=== PATIENT | female | born 1930 | race Hispanic/Latino ===

== ENCOUNTER 2018-02-20 12:02 | Observation (INO) | payer OTHER, MEDICARE ==
[2018-02-20] MEDS ORDERED: Lidocaine 2% Inj (20ml) ONE (12:05)
[2018-02-20] MEDS ORDERED: Phenylephrine 10 mg/ml Inj ONE (12:06)
[2018-02-20] MEDS ORDERED: Adenosine 90 mg/30mL IV ONE (12:06)
[2018-02-20] MEDS ORDERED: Midazolam 2 MG/2 ML VIAL ONE ×2 (12:07→12:31)
[2018-02-20] MEDS ORDERED: Iohexol 350mgl/ml 50 ML ONE (12:09)
[2018-02-20] MEDS ORDERED: Iodixanol 320 MG/ML 200 ML BOTTLE IV ONE (12:09)
[2018-02-20] MEDS ORDERED: Iodixanol 320 MG/ML 100 ML BOTTLE IV ONE (12:09)
[2018-02-20] MEDS ORDERED: Nitroglycerin 50mg in D5W 50 MG/250 ML BOTTLE IV ONE (12:09)
[2018-02-20] MEDS ORDERED: Verapamil 2 ML ONE (12:13)
[2018-02-20] MEDS ORDERED: Heparin25000 units/250ml 1/2NS 25,000 UNITS/250 ML BAG IV SCH (16:00)
--- NOTE | 2018-02-20 16:17 | CP.PCM.CON ---
Past Patient History - Tetanus Immunizations Tetanus Immunization: Unknown - Past Social History Smoking Status: Former Smoker Chewing Tobacco Use: No - CARDIAC Hx Hypercholesterolemia: Yes Hx Hypertension: Yes - PULMONARY Hx Respiratory Disorders: No - NEUROLOGICAL Hx Neurological Disorder: No - HEENT Hx HEENT Problems: No - RENAL Hx Chronic Kidney Disease: No - ENDOCRINE/METABOLIC Hx Endocrine Disorders: No - HEMATOLOGICAL/ONCOLOGICAL Hx Blood Disorders: No - INTEGUMENTARY Hx Dermatological Problems: No - MUSCULOSKELETAL/RHEUMATOLOGICAL Hx Musculoskeletal Disorders: No - GASTROINTESTINAL Hx Gastrointestinal Disorders: No - GENITOURINARY/GYNECOLOGICAL Hx Genitourinary Disorders: No - PSYCHIATRIC Hx Psychophysiologic Disorder: No Hx Substance Use: No - SURGICAL HISTORY Hx Surgeries: No - ANESTHESIA Hx Anesthesia: No Meds Allergies/Adverse Reactions: Allergies Allergy/AdvReac Type Severity Reaction Status Date / Time No Known Allergies Allergy Verified 02/20/18 13:35 - Medications Medications: Current Medications Aspirin (Ecotrin) 81 mg PO DAILY [facility] Atorvastatin Calcium (Lipitor) 80 mg PO DIN [facility] Clopidogrel Bisulfate (Plavix) 75 mg PO DAILY [facility] Heparin Sodium/Sodium Chloride (Heparin 63695 Units/250ml 1/2 Normal Saline) 25 ,000 units in 250 mls @ 11.544 mls/hr IV .[id number] [facility]; 12 UNITS/KG/HR PRN Reason: Protocol
--- NOTE | 2018-02-20 17:23 | CP.PCM.CON ---
<Scar Lujan - Last Filed: 02/20/18 17:17> History of Present Illness - History of Present Illness History of Present Illness: ICU Consult Note Pt is an 87 yo F with PMH of HLD, HTN, pre-diabetes, carotid stenosis, and arthritis presents to [facility] ICU after cardiac catherization. Patient was originally admitted to [facility] and was found to have a NSTEMI and acute CHF exacerbation with preserved ejection fraction. Cardiology evaluated patient and had her transferred to [facility]. 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 IABP placement was attempted, but could not be placed due to severe aortic calcification. Currently, patient denies CP, SOB, n/v/d, abdominal pain, fever, chills, SANCHES, or dizziness. PMH: HLD, HTN, pre-diabetes, carotid stenosis, arthritis Surg: Denied All: NKDA SH: Denied EtOH, tobacco, or illicit drug use FHx: Non-contributory Review of Systems - Review of Systems Review of Systems: 12 point ROS reviewed and is negative other than what is stated in HPI. Past Patient History - Tetanus Immunizations Tetanus Immunization: Unknown - Past Social History Smoking Status: Former Smoker Chewing Tobacco Use: No - CARDIAC Hx Hypercholesterolemia: Yes Hx Hypertension: Yes - PULMONARY Hx Respiratory Disorders: No - NEUROLOGICAL Hx Neurological Disorder: No - HEENT Hx HEENT Problems: No - RENAL Hx Chronic Kidney Disease: No - ENDOCRINE/METABOLIC Hx Endocrine Disorders: No - HEMATOLOGICAL/ONCOLOGICAL Hx Blood Disorders: No - INTEGUMENTARY Hx Dermatological Problems: No - MUSCULOSKELETAL/RHEUMATOLOGICAL Hx Musculoskeletal Disorders: No - GASTROINTESTINAL Hx Gastrointestinal Disorders: No - GENITOURINARY/GYNECOLOGICAL Hx Genitourinary Disorders: No - PSYCHIATRIC Hx Psychophysiologic Disorder: No Hx Substance Use: No - SURGICAL HISTORY Hx Surgeries: No - ANESTHESIA Hx Anesthesia: No Meds Allergies/Adverse Reactions: Allergies Allergy/AdvReac Type Severity Reaction Status Date / Time No Known Allergies Allergy Verified 02/20/18 13:35 - Medications Medications: Current Medications Aspirin (Ecotrin) 81 mg PO DAILY [facility] Atorvastatin Calcium (Lipitor) 80 mg PO DIN [facility] Clopidogrel Bisulfate (Plavix) 75 mg PO DAILY [facility] Heparin Sodium/Sodium Chloride (Heparin 59441 Units/250ml 1/2 Normal Saline) 25 ,000 units in 250 mls @ 11.544 mls/hr IV .[id number] [facility]; 12 UNITS/KG/HR PRN Reason: Protocol Last Admin: 02/20/18 16:20 Dose: 12 units/kg/hr, 11.544 mls/hr Physical Exam - Constitutional Appears: No Acute Distress - Head Exam Head Exam: NORMAL INSPECTION - Eye Exam Eye Exam: Normal appearance - ENT Exam ENT Exam: Mucous Membranes Moist - Neck Exam Neck exam: Positive for: Normal Inspection - Respiratory Exam Respiratory Exam: Clear to Auscultation Bilateral. absent: Rales, Rhonchi, Wheezes - Cardiovascular Exam Cardiovascular Exam: RRR, +S1, +S2. absent: Diastolic murmur, Gallop, Rubs, Systolic Murmur - GI/Abdominal Exam GI & Abdominal Exam: Soft. absent: Distended, Guarding, Rebound, Tenderness - Extremities Exam Additional comments: Right femoral artery, vein sheath left in place post cardiac cath; no signs of hematoma, erythema, or discharge at cardiac cath site. - Neurological Exam Neurological exam: Alert, CN II-XII Intact, Oriented x3 - Psychiatric Exam Psychiatric exam: Flat Affect, Normal Affect, Normal Mood - Skin Skin Exam: Dry, Intact, Normal Color, Warm Assessment & Plan - Assessment and Plan (Free Text) Assessment: 87 yo F with PMH HLD, HTN, pre-diabetes, arthritis, and carotid stenosis transferred to ICU s/p cardiac catherization due to NSTEMI. 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 Further intervention not available at [facility]. The risks and benefits of transfer were explained to the patient. Patient acknowledged and agreed to be transferred. Patient is accepted and will be transferred to [facility]. <Franklin Harrington - Last Filed: 02/20/18 18:14> Meds - Medications Medications: Current Medications Aspirin (Ecotrin) 81 mg PO DAILY [facility] Atorvastatin Calcium (Lipitor) 80 mg PO DIN [facility] Clopidogrel Bisulfate (Plavix) 75 mg PO DAILY [facility] Heparin Sodium/Sodium Chloride (Heparin 55676 Units/250ml 1/2 Normal Saline) 25 ,000 units in 250 mls @ 11.544 mls/hr IV .[id number] [facility]; 12 UNITS/KG/HR PRN Reason: Protocol Last Admin: 02/20/18 16:20 Dose: 12 units/kg/hr, 11.544 mls/hr Results - Vital Signs Recent Vital Signs: Last Vital Signs Temp 97.8 F 02/20/18 15:47 Pulse 76 02/20/18 16:53 Resp 14 02/20/18 16:53 BP 114/77 02/20/18 16:53 Pulse Ox 97 02/20/18 16:53 Attending/Attestation - Attestation I have personally seen and examined this patient.: Yes I have fully participated in the care of the patient.: Yes I have reviewed all pertinent clinical information: Yes Notes (Text): 02/20/18 18:10 87 yo with ACS, triple vessel disease, is being transferred to [facility] for CT surgery eval. Hemodynamically and respiratory robbins stable for transfer. Protecting airways. Alert and oriented x 3 ccm time 40 min
[2018-02-20 17:48] VITALS: BP 114/77; PULSE 76; RESP 14; O2SAT 97
[2018-02-20 17:59] VITALS: TEMP 97.8
--- NOTE | 2018-02-20 21:45 | CARDCATH ---
PROCEDURE DATE: 02/20/2018 INDICATIONS: Chel Wilkins is an 87-year-old female who presented to [facility] Emergency Room with complaints of shortness of breath ongoing for 4 days prior to presentation. On the day of presentation, she also started having some neck discomfort and was severely short of breath. On initial presentation, she was noted to have troponins of 30 with a BNP of 15,000. She was in acute decompensated heart failure, was admitted to the ICU, initiated IV heparin and initiated on protocol for ACS with aspirin, Plavix, beta-blockers, and IV diuretic therapy. Repeat troponin came back at 70 and was emergently transferred out to [place] for urgent left heart catheterization for evaluation of [id number] MS and new-onset congestive heart failure. PROCEDURE PERFORMED: Emergent left heart catheterization with selective left and right coronary angiogram, left ventriculogram, right heart catheterization with hemodynamics and saturations. CORONARY ANATOMY: Left main is a large-sized vessel, it has 99% ostial and distal stenosis. LAD is a large-sized vessel, gives off 2 small diagonal branches, has a mid diffuse 40% stenosis. Left circumflex is a large-sized vessel, has some tandem 30% to 40% stenosis, gives off obtuse marginal branch. RCA has small nondominant diffuse 80% stenosis. Left ventricular ejection fraction is 30%. EDP is 20. RIGHT HEART CATHETERIZATION HEMODYNAMICS: RA pressures were mean RA 10, RV 54 with end diastolic of 10. PA pressure is 54/30 with mean PA of 28, pulmonary capillary wedge pressure was 21, cardiac output 2.3, cardiac index 1.7. IMPRESSION: Severe left main disease, ischemic cardiomyopathy, mild decompensated heart failure. Hemodynamically, the patient's blood pressure stable heart rate was in 80s. RECOMMENDATIONS: The patient is to be transferred emergently to [facility] for emergent CABG. 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 The patient will be maintained on IV heparin, aspirin, Plavix, statin, beta-blockers, nitrates. The patient is to be emergently evaluated and transferred for CABG. Thank you, Dr. Jiang and Dr. Doyle, for letting me participate in the care of your patient. Justen Barrios MD cc: Anoop Jiang MD MTDWilbur
== END 2018-02-20 21:41 ==
LOC: CATH 12:02 → CCU 15:46
PROVIDERS: ADMIT Internal Medicine Interventional Cardiology; ATTEND Internal Medicine Interventional Cardiology
DX: I21.4 Non-ST elevation (NSTEMI) myocardial infarction (principal); I50.9 Heart failure, unspecified; E78.00 Pure hypercholesterolemia, unspecified; E78.5 Hyperlipidemia, unspecified; I11.0 Hypertensive heart disease with heart failure; I25.5 Ischemic cardiomyopathy; I70.0 Atherosclerosis of aorta; Z87.891 Personal history of nicotine dependence; R73.03 Prediabetes; M19.90 Unspecified osteoarthritis, unspecified site; I65.29 Occlusion and stenosis of unspecified carotid artery
CPT/HCPCS: 33967; 93460; 93567; 99152; 99153; C1725; C1769; C1894; G0378; J0153; J1644; J2250; J2405; J3010; Q9966; Q9967